=== PATIENT | male | born 1940 | race Caucasian/White ===

== ENCOUNTER → 2016-12-21 | Outpatient (CLI) | payer MEDICARE | END | disposition home or self-care (01) | LOC: PCVCIMAG 10:51 | PROVIDERS: ATTEND Internal Medicine Cardiovascular Disease | DX: I71.4 Abdominal aortic aneurysm, without rupture (principal); I25.10 Atherosclerotic heart disease of native coronary artery without angina pectoris; I25.5 Ischemic cardiomyopathy; I21.3 ST elevation (STEMI) myocardial infarction of unspecified site; I48.0 Paroxysmal atrial fibrillation; R00.1 Bradycardia, unspecified; Z95.0 Presence of cardiac pacemaker; Z87.891 Personal history of nicotine dependence | CPT/HCPCS: 80061; 93005; 93306; 93978; G0463 ==

== ENCOUNTER → 2017-08-08 | Outpatient (CLI) | payer MEDICARE | END | disposition home or self-care (01) | LOC: PCVCCLINIC 13:16 | DX: I25.10 Atherosclerotic heart disease of native coronary artery without angina pectoris (principal); I48.0 Paroxysmal atrial fibrillation; I71.4 Abdominal aortic aneurysm, without rupture; I49.5 Sick sinus syndrome; R47.01 Aphasia; I50.23 Acute on chronic systolic (congestive) heart failure; I73.9 Peripheral vascular disease, unspecified; I25.5 Ischemic cardiomyopathy; J44.9 Chronic obstructive pulmonary disease, unspecified; Z87.891 Personal history of nicotine dependence; Z86.73 Personal history of transient ischemic attack (TIA), and cerebral infarction without residual deficits; Z79.899 Other long term (current) drug therapy; Z79.82 Long term (current) use of aspirin | CPT/HCPCS: 80061; 93280; G0463 ==

== ENCOUNTER → 2018-02-27 | Outpatient (CLI) | payer MEDICARE | END | disposition home or self-care (01) | LOC: PCVCCLINIC 15:14 | PROVIDERS: ATTEND Internal Medicine Cardiovascular Disease | DX: I25.10 Atherosclerotic heart disease of native coronary artery without angina pectoris (principal); I73.9 Peripheral vascular disease, unspecified; I49.5 Sick sinus syndrome; I71.4 Abdominal aortic aneurysm, without rupture; I25.5 Ischemic cardiomyopathy; J44.9 Chronic obstructive pulmonary disease, unspecified; R47.01 Aphasia; Z86.711 Personal history of pulmonary embolism; Z86.73 Personal history of transient ischemic attack (TIA), and cerebral infarction without residual deficits; Z88.8 Allergy status to other drugs, medicaments and biological substances; Z79.899 Other long term (current) drug therapy; Z79.82 Long term (current) use of aspirin | CPT/HCPCS: 93005; 93283; G0463 ==

== ENCOUNTER → 2018-08-23 | Outpatient (CLI) | payer MEDICARE ==
--- NOTE | 2018-08-23 10:57 | PCVCIMAG ---
EXAM: AORTOILIAC DUPLEX INDICATION: Abdominal aortic aneurysm. FINDINGS: AORTA: Suprarenal aorta measures maximum diameter of 2.8 cm. There is a fusiform infrarenal aortic aneurysm. The infrarenal aorta measures maximum diameter of 4.3 x 4.3 cm. No aortic stenosis. RIGHT COMMON ILIAC ARTERY: Maximum diameter is 1.8 cm. No significant stenosis. RIGHT EXTERNAL ILIAC ARTERY: No significant stenosis. LEFT COMMON ILIAC ARTERY: Maximum diameter is 2.3 cm. No significant stenosis. LEFT EXTERNAL ILIAC ARTERY: No significant stenosis. IMPRESSION: 4.3 cm infrarenal abdominal aortic aneurysm compares to 3.6 cm on March [address] study. 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 Interval follow-up with CT of the abdomen and pelvis in 6 months is suggested. LOC:[id number]
--- NOTE | 2018-08-23 11:02 | PCVCIMAG ---
EXAM: BILATERAL LOWER EXTREMITY ARTERIAL DUPLEX INDICATION: Peripheral arterial disease. Leg pain. FINDINGS: Right Leg: Common femoral and profunda femoral arteries are patent. Complete occlusion proximal/mid [place] superficial femoral artery. Refilling of the distal superficial femoral artery. Popliteal artery is patent although the arterial flow is blunted. The anterior tibial, peroneal, and posterior tibial arteries are patent. Left Leg: Satisfactory arterial waveforms throughout the common/profunda/superficial femoral, popliteal, anterior tibial, peroneal, and posterior tibial arteries. No flow limiting stenosis seen. IMPRESSION: Complete occlusion proximal/mid [place] right superficial femoral artery. No flow limiting stenosis in the left lower extremity. LOC:[id number]
--- NOTE | 2018-08-23 11:39 | PCVCIMAG ---
APPROVED REPORT Study performed: 08/23/2018 10:17:06 EXAM: Comprehensive 2D, Doppler, and color-flow Echocardiogram Patient Location: Echo lab Room #: 2Status: routine BSA: 1.72 HR: 70 bpm Rhythm: Atrial Fibrillation Other Information Study Quality: Good Indications CVA/TIA Atrial Fibrillation Pacemaker CAD Cardiomyopathy Ischemic CM 2D Dimensions IVSd: 18.40 (7-11mm)LVOT Diam: 19.77 (18-24mm) LVDd: 61.49 mm PWd: 8.71 (7-11mm)Ascending Ao: 27.38 (22-36mm) LVDs: 53.93 (25-40mm) Left Atrium: 36.44 (27-40mm) Aortic Root: 24.17 mm LV Single Plane 4CH: 34.47 % LV Single Plane 2CH: 26.04 % Biplane EF: 28.6 % Volumes Left Atrial Volume (Systole) Single Plane 4CH: 78.84 mLSingle Plane 2CH: 77.96 mL Biplane LA Volume: 79.00 mLLA ESV Index: 46.00 mL/m2 Aortic Valve AoV Peak Bipin.: 1.03 m/s AO Peak Gr.: 4.52 mmHgLVOT Max P.78 mmHg LVOT Max V: 0.78 m/s JENNIFER Vmax: 2.35 cm2 Mitral Valve MV E Max Bipin.: 0.70 m/s Pulmonary Valve PV Peak Bipin.: 0.75 m/sPV Peak Gr.: 2.28 mmHg Tricuspid Valve TR Peak Bipin.: 2.48 m/s TR Peak Gr.: 24.66 mmHg TV Vmax: 1.20 m/sPA Pressure: 35.00 mmHg Left Ventricle Left ventricle is moderately dilated. Akinesis of inferolateral wall consistent with known old VT. Moderate l septal hypertrophy is present. Left ventricular ejection fraction is severely decreased. LVEF is 25-30%. This study is not technically sufficient to allow evaluation of the LV diastolic function due to atrial fibrillation. Right Ventricle Right ventricle is moderate to severely dilated. Right ventricle is mildly hypokinetic. Atria Left atrium is severely dilated. Right atrium is severely dilated. Aortic Valve Aortic valve is trileaflet. No aortic regurgitation is present. There is no aortic valvular stenosis. Mitral Valve The mitral valve is normal in structure. There is mild mitral valve regurgitation noted. No evidence of mitral valve stenosis. Tricuspid Valve The tricuspid valve is normal in structure. There is mild tricuspid valve regurgitation noted with a PA pressure of 35 mmHg There is mild pulmonary hypertension. RVSP may be underestimated by effect of low EF. Pulmonic Valve The pulmonary valve is normal in structure. There is no pulmonic valvular regurgitation. Great Vessels The aortic root is normal in size. The ascending aorta is normal in size. Aortic arch is normal in caliber. IVC is dilated and collapses <50% with inspiration. Pericardium There is no pericardial effusion. There is no pleural effusion. <Conclusion> Left ventricle is moderately dilated. Moderate l septal hypertrophy is present. Akinesis of inferolateral wall consistent with known old VT. Left ventricular ejection fraction is severely decreased. LVEF is 25-30%. This study is not technically sufficient to allow evaluation of the LV diastolic function due to atrial fibrillation. Right ventricle is moderate to severely dilated. Right ventricle is mildly hypokinetic. Left atrium is severely dilated. Right atrium is severely dilated. Aortic valve is trileaflet. There is mild mitral valve regurgitation noted. There is mild tricuspid valve regurgitation noted with a PA pressure of 35 mmHg There is mild pulmonary hypertension. RVSP may be underestimated by effect of low EF. The aortic root is normal in size. There is no pericardial effusion.
== END | disposition home or self-care (01) ==
LOC: PCVCIMAG 08:58
PROVIDERS: ATTEND Internal Medicine Cardiovascular Disease
DX: I71.4 Abdominal aortic aneurysm, without rupture (principal); I08.1 Rheumatic disorders of both mitral and tricuspid valves; I25.10 Atherosclerotic heart disease of native coronary artery without angina pectoris; I48.91 Unspecified atrial fibrillation; I11.0 Hypertensive heart disease with heart failure; I50.23 Acute on chronic systolic (congestive) heart failure; E78.00 Pure hypercholesterolemia, unspecified; I73.9 Peripheral vascular disease, unspecified; I63.9 Cerebral infarction, unspecified; I49.5 Sick sinus syndrome; I25.5 Ischemic cardiomyopathy; I27.20 Pulmonary hypertension, unspecified; J44.9 Chronic obstructive pulmonary disease, unspecified; Z95.810 Presence of automatic (implantable) cardiac defibrillator; Z87.891 Personal history of nicotine dependence; Z79.82 Long term (current) use of aspirin; Z79.899 Other long term (current) drug therapy
CPT/HCPCS: 36415; 80061; 93283; 93306; 93925; 93978; G0463

== ENCOUNTER → 2018-08-29 | Outpatient (CLI) | payer MEDICARE ==
[~2018-08-29] MED LIST: DIAZEPAM 10 MG TABLET. ONE; EPTIFIBATIDE BOLUS 2,000 MCG/ML 10ML VIAL. IV ONE; HEPARIN for ARTERIAL LINE 1,500 ML ONE; HEPARIN for SUB-Q USE 5,000 UNIT/ML VIAL. SQ ONE; IODIXANOL 270 MG/ML 100 ML VIAL. ONE; IOHEXOL 350 MG/ML 100 ML VIAL. ONE; IV NORMAL SALINE 1000ML BAG 1,000 ML ONE; LIDOCAINE 1%/EPI 1:100,000 20 ML VIAL. ONE; MIDAZOLAM HCL/PF 2 MG/2 ML VIAL. ONE; fentaNYL PF VIAL 100 MCG/2 ML VIAL ONE
--- NOTE | 2018-08-29 16:10 | PCVCINTER ---
EXAM: 1. AORTOGRAM AND BILATERAL LOWER EXTREMITY RUNOFF ANGIOGRAM 2. BILATERAL RENAL ANGIOGRAPHY 3. RIGHT SUPERFICIAL FEMORAL ARTERY ATHERECTOMY AND STENT PLACEMENT. 4. SECONDARY THROMBECTOMY RIGHT SUPERFICIAL FEMORAL ARTERY. 5. DRUG COATED BALLOON ANGIOPLASTY RIGHT SUPERFICIAL FEMORAL ARTERY. 6. LEFT EXTERNAL ILIAC ARTERY STENT PLACEMENT. INDICATION: Peripheral arterial disease. Coronary artery disease. Right leg pain and cramping with ambulation. Abdominal aortic aneurysm. Hypertension. Renal atherosclerosis. No prior catheter based angiographic study is available. A full diagnostic angiogram study is performed today and the decision to intervene is based on this diagnostic study. PROCEDURE: Procedure and risks of angiography intervention is appropriate including limb loss stroke and were discussed with the patient's family and consent obtained. The patient's left groin was prepped in the normal sterile fashion. IV conscious sedation was used throughout procedure with appropriate monitoring from 11:30 AM through 1:30 PM. Ultrasound was used to interrogate the left groin and showed the left common femoral artery to be patent. A permanent spot film was obtained. Under ultrasound guidance access into the left common femoral artery was obtained and a 5 Egyptian sheath was placed. Through this a 5 Egyptian flush catheter was placed into the abdominal aorta at the level of the renal arteries and AP aortogram was performed. Catheter was positioned at the aortic bifurcation and both oblique views of the pelvis were obtained. Catheter was positioned into the left external iliac artery and left leg runoff angiography was performed. Catheter was exchanged for a visceral catheter was placed into the right renal arteries and right renal angiograms obtained. Catheter was placed into the the left renal arteries and left renal angiograms were obtained. Catheter was advanced to the level of the right external iliac artery and right leg runoff angiography was obtained. Patient was given 4000 units of heparin. A 6 Egyptian crossover sheath was placed via the left groin to the level of the right common femoral artery. Atherectomy of the right superficial femoral artery was performed with 2.0 mm Science laser atherectomy catheter in the standard fashion. Following atherectomy small areas of thrombus were observed and because of this secondary thrombectomy throughout the right superficial femoral artery was carried out with mechanical suction thrombectomy catheter in the standard fashion. Minimal debris was removed. Stent placement across the areas of occlusion in the right superficial femoral artery was carried out with a 6 x 150, 6 x 150, and 6 x 20 Smart control stents with subsequent dilatation to 6.0 mm. Following this drug coated balloon angioplasty of the right superficial femoral artery was carried out with a 6 x 120, 6 x 120, 6 x 40, and 6 x 40 [employer] MANAGER REPORTING catheters. Follow-up angiogram was performed. Catheters and wires removed. Sheath was removed and hemostasis obtained using the FISH device. No immediate complications. FINDINGS: Aortogram: There is one right and one left renal artery. Approximately 1 cm below the level of the lowest renal artery which is the left renal artery a fusiform aneurysm is present. This ends at the aortic bifurcation. Pelvis: There is a fusiform aneurysm involving the right common iliac artery with moderate stenosis intraluminally. 70% stenosis proximal external iliac artery on the right. Ectasia throughout the left common iliac artery. Left internal iliac artery is occluded. High-grade stenosis origin right internal iliac artery. 90% stenosis mid [place] left external iliac artery. The right and left common femoral and profunda femoral arteries are patent. Right renal artery: Mild plaque proximal vessel does not cause significant stenosis. Left renal artery: Mild plaque proximal vessel not cause significant stenosis. Right leg: Long segment occlusion throughout the superficial femoral artery. Refilling of the distal superficial femoral artery. Popliteal artery is patent. Three-vessel runoff into the foot. Note is made patient has very slow flow throughout both lower extremities. Left leg: Multiple high-grade stenoses throughout the proximal/mid [place] superficial femoral artery. Distal superficial femoral artery and popliteal arteries show adequate patency. Three-vessel runoff into the foot. Right superficial femoral artery: Recanalization was accomplished with satisfactory patency restored. Left external iliac artery: Following stent placement vessel shows satisfactory patency. IMPRESSION: Long segment occlusion right superficial femoral artery was treated with stent placement atherectomy with adequate patency restored. Patient has slow flow throughout both lower extremities. Fusiform infrarenal abdominal aortic aneurysm with aneurysmal dilatation of the right common iliac artery as well as moderate stenosis. Bilateral external iliac artery stenoses as detailed above. Multiple high-grade stenoses left superficial femoral artery. I'll follow-up with the patient in 2-3 weeks for further discussion regarding the patient's aneurysm, evaluate for improvement in right leg symptoms and further discussion of left SFA stenoses. LOC:[id number]
--- NOTE | 2018-08-29 17:29 | PCVCIMAG ---
EXAM: DUPLEX ULTRASOUND OF THE LEFT GROIN INDICATION: Groin swelling and pain. FINDINGS: No pseudoaneurysm is present. The common femoral artery and vein are patent. No arteriovenous fistula is seen. IMPRESSION: Study is negative for pseudoaneurysm. LOC:[id number]
--- NOTE | 2018-08-30 18:18 | PCVCINTER ---
APPROVED REPORT Study performed: 08/29/2018 13:47:49 Patient Details Patient Status: Out-Patient Room #: 2 The patient is a 78 year-old Male Event Personnel Emmett Villela MD, Reji Kwong RT(R)(), Leo Polanco RT(R)(), Alek Nava RN, Mildred Jiménez RN, Shine Lange MD Risk Factors Arterial HypertensionDysplipidemia (Type: 0), Cerebrovascular DiseasePeripheral Vascular Disease, Chronic Lung DiseaseHypercholesterolemiaPhysical Activity, Diabetes (Control: None)Last Creatanine 1.2 Previous Procedures/Diagnoses Previous Femoral Procedure, Previous CHF, CAD, Cerebrovascular disease->CVA, PVD, LV dysfunction, Hypertension, Diabetes, Arrhythmias - Supraventricular tachycardias->Persistent AF, Arrhythmias - Sinus Node->Sick sinus syndrome Procedure Narrative The patient was brought electively to the Cardiac Catheterization Laboratory and was prepped and draped in a sterile manner. A 6fr sheath was inserted into the left femoral artery. Coronary angiography was performed using coronary diagnostic catheters. The right coronary system was accessed and visualized with a JR4 catheter. The left coronary system was accessed and visualized with a JL4 catheter. The left ventricle was accessed and visualized with a Pigtail catheter. Closure device was deployed with a 6 Fr Fish. Hemostasis was obtained with manual pressure following sheath removal without any complications. The patient tolerated the procedure well and there were no complications associated with the procedure. There was no hematoma. Hemodynamics The aortic pressure is 147/54 mmHg with a mean of 100 mmHg. The left ventricular pressure is 121/16 mmHg with a mean of 12 mmHg. Conclusion #1 mildly dilated left ventricle with mildly severe global hypokinesis worse inferiorly EF 20-25% #2 left main moderate in size free of disease giving rise to LAD and circumflex #3 the LAD is moderately calcified 3040% proximal lesions this extends around the apex tortuous and calcified no occlusive disease. Ears to be low left to right septals and LAD filling the PDA off on occluded RCA #4 there is a moderate size but nondominant circumflex with a proximal mid OM lesion of 90% moderate area of distribution. This is proximal to a previously placed stent which has mild in-stent restenosis it is also distal to a previously placed stent #5 dominant right coronary artery occluded. Prior infarct vessel. The PDA is filled via the left system. Recommendations and plan: The patient is undergone peripheral intervention. There is a CTA ordered of this abdominal aorta. Would recommend intervention to the circumflex OM lesion. This will be arranged for later date.
== END | disposition home or self-care (01) ==
LOC: PCVCINTER 09:00
PROVIDERS: ATTEND Internal Medicine Cardiovascular Disease
DX: I70.293 Other atherosclerosis of native arteries of extremities, bilateral legs (principal); I25.10 Atherosclerotic heart disease of native coronary artery without angina pectoris; I70.1 Atherosclerosis of renal artery; I11.0 Hypertensive heart disease with heart failure; I50.23 Acute on chronic systolic (congestive) heart failure; E11.9 Type 2 diabetes mellitus without complications; E78.00 Pure hypercholesterolemia, unspecified; I48.1 Persistent atrial fibrillation; I49.5 Sick sinus syndrome; I47.1 Supraventricular tachycardia; Z86.73 Personal history of transient ischemic attack (TIA), and cerebral infarction without residual deficits; J44.9 Chronic obstructive pulmonary disease, unspecified; I25.5 Ischemic cardiomyopathy; Z95.0 Presence of cardiac pacemaker; Z82.49 Family history of ischemic heart disease and other diseases of the circulatory system; Z80.42 Family history of malignant neoplasm of prostate; Z87.891 Personal history of nicotine dependence; Z88.1 Allergy status to other antibiotic agents; Z79.899 Other long term (current) drug therapy; Z79.82 Long term (current) use of aspirin; J96.20 Acute and chronic respiratory failure, unspecified whether with hypoxia or hypercapnia; I71.4 Abdominal aortic aneurysm, without rupture; I25.2 Old myocardial infarction; Z79.84 Long term (current) use of oral hypoglycemic drugs
CPT/HCPCS: 36252; 37186; 37221; 37227; 75716; 76937; 93458; 93926; 99152; 99153; C1725; C1751; C1757; C1760; C1769; C1876; C1885; C1887; C1894; C2623; C2628; J0690; J1327; J1644; J2250; J3010; J3490; J7030; Q9967

== ENCOUNTER → 2018-09-19 | Outpatient (CLI) | payer MEDICARE ==
--- NOTE | 2018-09-19 10:27 | PCVCIMAG ---
EXAM: RIGHT LOWER EXTREMITY ARTERIAL DUPLEX INDICATION: Peripheral Arterial Disease. Leg pain. FINDINGS: Right Leg: Satisfactory arterial waveforms throughout the common/profunda/superficial femoral, popliteal, anterior tibial, peroneal, and posterior tibial arteries. No flow limiting stenosis seen. Previous stent throughout the superficial femoral artery maintaining good patency. IMPRESSION: No flow limiting stenosis in the right lower extremity. Previous right superficial femoral artery stent maintaining good patency. LOC:[id number]
== END | disposition home or self-care (01) ==
LOC: PCVCIMAG 09:21
PROVIDERS: ATTEND Nuclear Medicine Nuclear Cardiology
DX: I71.4 Abdominal aortic aneurysm, without rupture (principal); I73.9 Peripheral vascular disease, unspecified; I77.9 Disorder of arteries and arterioles, unspecified; I25.10 Atherosclerotic heart disease of native coronary artery without angina pectoris; I48.91 Unspecified atrial fibrillation; I10 Essential (primary) hypertension; J44.9 Chronic obstructive pulmonary disease, unspecified; E78.00 Pure hypercholesterolemia, unspecified; Z87.891 Personal history of nicotine dependence
CPT/HCPCS: 93926; G0463

== ENCOUNTER → 2018-10-02 | Outpatient (CLI) | payer MEDICARE | END | disposition home or self-care (01) | LOC: PCVCCLINIC 15:15 | PROVIDERS: ATTEND Internal Medicine Cardiovascular Disease | DX: T14.8XXA Other injury of unspecified body region, initial encounter (principal); I11.0 Hypertensive heart disease with heart failure; I50.23 Acute on chronic systolic (congestive) heart failure; D64.9 Anemia, unspecified; J44.9 Chronic obstructive pulmonary disease, unspecified; I25.10 Atherosclerotic heart disease of native coronary artery without angina pectoris; I48.2 Chronic atrial fibrillation; I25.5 Ischemic cardiomyopathy; I49.5 Sick sinus syndrome; I71.4 Abdominal aortic aneurysm, without rupture; I77.9 Disorder of arteries and arterioles, unspecified; I73.9 Peripheral vascular disease, unspecified; R47.01 Aphasia; E78.00 Pure hypercholesterolemia, unspecified; Z87.891 Personal history of nicotine dependence; Z79.82 Long term (current) use of aspirin; Z88.1 Allergy status to other antibiotic agents | CPT/HCPCS: G0463 ==

== ENCOUNTER → 2018-10-09 | Outpatient (CLI) | payer MEDICARE | END | disposition home or self-care (01) | LOC: PCVCCLINIC 14:33 | PROVIDERS: ATTEND Internal Medicine Cardiovascular Disease | DX: I25.10 Atherosclerotic heart disease of native coronary artery without angina pectoris (principal); J44.9 Chronic obstructive pulmonary disease, unspecified; I71.4 Abdominal aortic aneurysm, without rupture; I11.0 Hypertensive heart disease with heart failure; I50.23 Acute on chronic systolic (congestive) heart failure; I48.91 Unspecified atrial fibrillation; I73.9 Peripheral vascular disease, unspecified; I49.5 Sick sinus syndrome; D64.9 Anemia, unspecified; Z88.1 Allergy status to other antibiotic agents | CPT/HCPCS: 36415; G0463 ==

== ENCOUNTER → 2018-11-11 | Outpatient (CLI) | payer MEDICARE | END | disposition home or self-care (01) | LOC: PCVCCLINIC 14:00 | PROVIDERS: ATTEND Internal Medicine Cardiovascular Disease | DX: I25.10 Atherosclerotic heart disease of native coronary artery without angina pectoris (principal); I48.91 Unspecified atrial fibrillation; J44.9 Chronic obstructive pulmonary disease, unspecified; I11.0 Hypertensive heart disease with heart failure; I50.23 Acute on chronic systolic (congestive) heart failure; I77.9 Disorder of arteries and arterioles, unspecified; I25.5 Ischemic cardiomyopathy; I49.5 Sick sinus syndrome; I73.9 Peripheral vascular disease, unspecified; D68.59 Other primary thrombophilia; E78.00 Pure hypercholesterolemia, unspecified; Z87.891 Personal history of nicotine dependence | CPT/HCPCS: 93005; G0463 ==

== ENCOUNTER → 2019-02-28 | Outpatient (CLI) | payer MEDICARE ==
--- NOTE | 2019-02-28 11:56 | PCVCIMAG ---
EXAM: AORTOILIAC DUPLEX INDICATION: Peripheral arterial disease FINDINGS: AORTA: Suprarenal aorta measures maximum diameter of 3.0 cm. There is a fusiform infrarenal aortic aneurysm. The infrarenal aorta measures maximum diameter of 3.9 x 4.4 cm. No aortic stenosis. RIGHT COMMON ILIAC ARTERY: Maximum diameter is 2.0 cm. No significant stenosis. RIGHT EXTERNAL ILIAC ARTERY: No significant stenosis. LEFT COMMON ILIAC ARTERY: Maximum diameter is 2.4 cm. No significant stenosis. LEFT EXTERNAL ILIAC ARTERY: No significant stenosis. IMPRESSION: 4.4 cm infrarenal abdominal aortic aneurysm compared to 4.3 cm on July 2018 study. Interval follow-up is suggested. No aortoiliac stenosis. LOC:[id number]
--- NOTE | 2019-02-28 12:24 | PCVCIMAG ---
EXAM: BILATERAL LOWER EXTREMITY ARTERIAL DUPLEX INDICATION: Peripheral Arterial Disease. Leg pain. FINDINGS: Right Leg: Satisfactory arterial waveforms throughout the common/profunda/superficial femoral, popliteal, anterior tibial, peroneal, and posterior tibial arteries. No flow limiting stenosis seen. Previous superficial femoral artery stent maintaining satisfactory patency. Left Leg: Satisfactory arterial waveforms throughout the common/profunda/superficial femoral, popliteal, anterior tibial, peroneal, and posterior tibial arteries. No flow limiting stenosis seen. Previous superficial femoral artery stent maintaining satisfactory patency. IMPRESSION: No flow limiting stenosis in the right lower extremity. No flow limiting stenosis in the left lower extremity. Previous right and left superficial femoral artery stents maintaining satisfactory patency. LOC:[id number]
== END | disposition home or self-care (01) ==
LOC: PCVCIMAG 08:06
PROVIDERS: ATTEND Internal Medicine Cardiovascular Disease
DX: I73.9 Peripheral vascular disease, unspecified (principal); I25.10 Atherosclerotic heart disease of native coronary artery without angina pectoris; E78.00 Pure hypercholesterolemia, unspecified; I48.91 Unspecified atrial fibrillation; I77.9 Disorder of arteries and arterioles, unspecified; J44.9 Chronic obstructive pulmonary disease, unspecified; I69.359 Hemiplegia and hemiparesis following cerebral infarction affecting unspecified side; I25.5 Ischemic cardiomyopathy; I49.5 Sick sinus syndrome; I11.0 Hypertensive heart disease with heart failure; I50.23 Acute on chronic systolic (congestive) heart failure; Z79.82 Long term (current) use of aspirin; Z87.891 Personal history of nicotine dependence
CPT/HCPCS: 36415; 80061; 93280; 93925; 93978; G0463